=== PATIENT | female | born 2000 | race African-American/Black ===

== ENCOUNTER 2025-03-24 23:42 | Emergency (ER) | payer SELFPAY ==
--- NOTE | ~2025-03-24 | US_ITS ---
Pelvic ultrasound. Clinical History: First trimester , evaluate for ectopic . Technique: Realtime transabdominal and transvaginal scanning of the pelvis was performed. Color flow Doppler and Doppler spectral analysis were performed. Findings: The uterus is anteverted, and contains an intrauterine gestational sac. Average sac diamete r of 1.7 cm corresponds to an estimated gestational age of 6 weeks 3 days. [place]-rump length of 5 mm corresponds to an estimated gestational age of 6 weeks 1 day. heart rate is 123 bpm.. The right ovary measures 2.1 x 2.9 x 3.5 cm. Corpus luteal cyst is seen. The left ovary measures 2.9 x 1.6 x 1.7 cm. No significant left ovarian or adnexal mass is seen. There is no evidence of free fluid in the cul de sac. Impression: Live intrauterine gestation, with estimated gestational age of 6 weeks 1 day. heart rate is 123 bpm. Reviewed, dictated and finalized at location . Impression: Live intrauterine gestation, with estimated gestational age of 6 weeks 1 day. F etal heart rate is 123 bpm.
[2025-03-24 23:45] VITALS: BP 122/57; PULSE 93; RESP 18; TEMP 36.9; O2SAT 98
--- NOTE | 2025-03-24 23:49 | ECG_ITS ---
Test Date: 2025-03-24 23:59:34 Measurements Intervals [place] Rate: 72 P: 34 CO: 132 QRS: 70 QRSD: 72 T: 33 QT: 370 QTc: 406 Interpretive Statements SINUS RHYTHM WITH OCCASIONAL SUPRAVENTRICULAR PREMATURE COMPLEXES No previous ECG available for comparison Electronically Signed On 03-25-2025 14:03:21 CDT by Ama Mac M.D.
--- NOTE | 2025-03-25 00:38 | PC.NURSE ---
Pt reports LMP was 02/06. pt had x1 day of spotting this month on 03/08. reports she belives there is a chance she may be . bedside positive.
[2025-03-25 00:48] LABS: Add Urine Microscopic? YES; Appearance Urine Cloudy (Clear); Bacteria Urine None Seen /hpf; Bilirubin Urine Negative (Negative); Blood Urine Negative (Negative); Color Urine Yellow (Yellow); Glucose Urine UA Negative (Negative); Ketones Urine Negative (Negative); Leukocyte Esterase Ur Trace LEU/UL (Negative); Nitrate Urine Negative (Negative); Non Pathogenic Casts 0-2; Protein Urine Negative (Negative); RBC Urine 0-2 /hpf (0-2); Specific Grav Ur 1.017 (1.001-1.035); Squamous Epithelial Cell Urine None Seen /hpf (Few); WBC Urine 0-5 /hpf (0-3)
--- NOTE | 2025-03-25 00:55 | ED_ITS ---
HPI - Abdominal Pain General Chief Complaint: Abdominal Pain Stated Complaint: abd pain, dizziness Time Seen by Provider: 03/25/25 00:09 Source: patient Mode of arrival: ambulatory Limitations: no limitations History of Present Illness HPI narrative: Patient presents with generalized abdominal pain, upper (RUQ) and lower (RLQ and LLQ) as well as low back pain. She has been dizzy. Desribes it as a pressure. No prior abdominal surgeries. Reports LMP 02/06/25; she did have some llight spotting 03/07-03/08. Has been nauseated and vomiting. Was seeing stars when standing. History of anemia. Last had sex approximately > 1 month ago. History of one previous preganncy, voluntary termination. No ObGyn. JESSICA was a few hours ago. Has an appetite. Subjective fevers but no chills. Emesis was non bloody non bilious. No sick contacts. Denies vaginal bleeding other than light bleeding as above. Has had some yellow/green discharge. Urinary urgency but no dysuria, frequency or hematuria. Right flank pain. LBM today was loose but formed, no constipation or blood. Related Data Allergies Allergy/AdvReac Type Severity Reaction Status Date / Time No Known Allergies Allergy Verified 03/25/25 04:16 [facility] Past Medical History Medical History Anemia Social History Social History (Updated 03/27/25 @ 05:58 by Rosamaria Crowder MD) Occupation/Education: occupation Exam 2 Narrative: GENERAL: Well-appearing, well-nourished, and in no acute distress. HEAD: Normocephalic, atraumatic. EYES: Non injected, non icteric ENT: Nares clear, no rhinorrhea or epistaxis. Gross auditory acuity intact. Tacky mucous membranes NECK: Supple. No meningismus. CHEST: Speaking in full sentences. No respiratory distress. HEART: Regular rate and rhythm. . ABDOMEN: Soft, nondistended. No rigidity or guarding. Not peritoneal. No tenderness to palpation throughout. BACK/: No CVA tenderness. Attempted pelvic/speculum exam with tech as sheet metal lay out worker/collections assistant but patient does not tolerate it well, do not have smaller size speculum in the department. No obvious external lesions/bleeding. NOrmal external genitalia. EXTREMITIES: Normal range of motion. No lower extremity edema. SKIN: Warm, dry, no rash. NEURO: No focal deficits. Alert and oriented. Answering questions. Following commands. Normal speech without aphasia or dysarthria. PSYCH: Normal mood and affect. Course Vital Signs Vital signs: Vital Signs Temperature 98.5 F 03/24/25 23:45 Pulse Rate 93 03/24/25 23:45 Respiratory Rate 18 03/24/25 23:45 Blood Pressure 122/57 L 03/24/25 23:45 Pulse Oximetry 98 03/24/25 23:45 Temperature 98.5 F 03/25/25 07:50 Pulse Rate 79 03/25/25 07:50 Respiratory Rate 16 03/25/25 07:50 Blood Pressure 109/74 03/25/25 07:50 Pulse Oximetry 100 03/25/25 07:50 MDM - Abdominal Pain MDM Narrative Medical decision making narrative: Patient presents with abdominla pain dizziness nausea and vomiting. The emergency department she is afebrile with acceptable vital signs. Urine test positive. This makes her . She did not know she was , there has been no confirmation of IUP. Normocytic anemia with no prior for comparison. Patient's beta-hCG is greater than 44,000. Ultrasound ordered emergently for ectopic rule out. Patient is updated at bedside at approximately 2:30 a.m.. She verifies understanding. She states she has not had any symptoms of morning sickness but she has had some abdominal cramping. Attempted to perform pelvic exam/speculum exam with sheet metal lay out worker Valarie present but patient's vaginal introitus small for speculum size available in ED. Deferred. A positive blood type. IUP on US. Discussed with patient. Discharged in stable condition with normal vital signs , OBGYn follow up, Rx for APAP and vitamins, and was given strict ED return precautions. Differential Diagnosis Differential diagnosis: Likely abdominal pain, calculus of kidney, constipation, endometriosis, pancreatitis and other (spectrum of new diagnosis (normal, miscarriage, ectopic)) Lab Data Attestation: I reviewed the patient's lab results. Lab results narrative: Normal renal function 03/25/25 00:24 03/25/25 00:24 Labs: Lab Results 03/25/25 03/25/25 03/25/25 Range/Units 00:24 00:38 02:25 WBC 6.1 (4.5-10.0) K/mm3 RBC 3.70 L (4.2-5.4) M/mm3 Hgb 10.7 L (12.0-15.0) g/dL Hct 33.0 L (37.0-47.0) % MCV 89.2 (80-100) fl MCH 28.9 (26-34) pg MCHC 32.4 (32-36) g/dl RDW 16.7 H (11.5-14.5) % Plt Count 243 (150-375) k/mm3 MPV 12.3 H (7.4-10.4) fl Immature Gran % (Auto) 1.0 H (0-0.5) % Neut % (Auto) 51.5 (45.5-73.1) % Lymph % (Auto) 33.6 (18.3-44.2) % [place] % (Auto) 11.0 H (2.6-8.5) % Eos % (Auto) 2.6 (0-4.4) % Baso % (Auto) 0.3 (0.2-1.2) % Lymph # (Auto) 2.05 (0.9-3.2) K/mm3 [place] # (Auto) 0.7 H (0.1-0.6) K/mm3 Eos # (Auto) 0.2 (0-0.3) K/mm3 Baso # (Auto) 0.0 (0.0-0.1) K/mm3 Abs Immat Gran (auto) 0.06 H (0.00-0.031) K/mm3 Absolute Neuts (auto) 3.1 (1.3-6.7) K/mm3 Absolute Nucleated RBC 0.000 (0.0-0.012) K/mm3 Nucleated RBC % 0.0 (0.0-0.2) % PT 14.4 (11.1-14.7) Seconds INR 1.1 APTT 27.3 (22.3-36.8) Seconds Sodium 137 (137-145) mmol/L Potassium 3.7 (3.4-5.0) mmol/L Chloride 103 (98-107) mmol/L Carbon Dioxide 23 (22-30) mmol/L Anion Gap 11 (4-12) mmol/L BUN 9 (7-17) mg/dL Creatinine 0.55 L (0.7-1.0) mg/dL Estim Creat Clear Calc 111 ml/min Estimated GFR > 60 (59 - ) Glucose 89 (65-110) mg/dL Calcium 9.7 (8.4-10.2) mg/dL Total Bilirubin 0.4 (0.2-1.3) mg/dL AST 25 (14-36) U/L ALT 14 (6-35) U/L Alkaline Phosphatase 32 L (38-126) U/L Total Protein 7.0 (6.3-8.2) g/dL Albumin 4.5 (3.5-5.1) g/dL Lipase 146 (23-300) U/L Beta HCG, Quant 05051.00 mIU/ML Urine Color Yellow (Yellow) Urine Appearance Cloudy H (Clear) Urine pH 7.0 (5.0-9.0) Ur Specific [place] 1.017 (1.001-1.035) Urine Protein Negative (Negative) mg/dL Urine Glucose (UA) Negative (Negative) mg/dL Urine Ketones Negative (Negative) mg/dL Ur Blood (Man) Negative (Negative) Urine Nitrate Negative (Negative) Urine Bilirubin Negative (Negative) Urine Urobilinogen 1.0 (<2.0) mg/dL Leukocyte Esterase Rfl Trace H (Negative) DANY/UL Urine RBC 0-2 (0-2) /hpf Urine WBC 0-5 (0-3) /hpf Ur Squamous Epith Cells None seen (Few) /hpf Urine Bacteria None seen /hpf Urine Casts 0-2 POC Urine HCG, Qual Positive (Negative) C. trachomatis (PCR) Not detected (NOT DETECTE) Influenza A (RT-PCR) Negative (Negative) Influenza B (RT-PCR) Negative (Negative) N. gonorrhoeae (PCR) Not detected (NOT DETECTE) SARS-CoV-2 RNA (RT-PCR) Negative (Negative) T. vaginalis (PCR) Not detected (NOT DETECTE) Blood Type A Positive Antibody Screen Negative Screen TNP Baby's Blood Type Not Reportable Baby's DOMINIQUE Not Reportable Doses of RhIg Required 0 Imaging Data Radiologist's impression: ITS Impressions Ultrasound 03/25/25 06:39 Impression: Live intrauterine gestation, with estimated gestational age of 6 weeks 1 day. heart rate is 123 bpm. ECG Data EKG #1: Attestation: I personally reviewed and interpreted this ECG as follows: ECG completion date: 03/24/25 ECG completion time: 23:59 Interpretation: Normal sinus rhythm at a rate of 72 beats per minute. [place] interval 132. QRS 72. QT/QTC 370/394. Good R-wave progression across the precordial leads. T-wave flattening in 3 but otherwise upright in normal contiguous inferior leads 2 and AVF. No other T-wave inversions. There is occasional supraventricular complex per Discharge Plan Discharge Clinical Impression: Normocytic anemia, Abdominal pain in early Patient Disposition: Home Condition: Stable Instructions: Antibiotic Form, Abdominal Pain in (ED), Anemia (ED) Additional Instructions: As we discussed, you are . Live intrauterine gestation, with estimated gestational age of 6 weeks 1 day. heart rate is 123 bpm. Acetaminophen/Tylenol is safe to take during . vitamins have also been prescribed. Follow-up with the OB Gyne listed below. Return to the emergency department with any new, worsening, or unmanaged symptoms. In particular, if you become short of breath, faint/nearly pass out, have a fever greater than 100.4? F, flank pain, intractable nausea or vomiting, intractable pain, or vaginal bleeding saturating 2 maxi pads an hour for 2-3 hours. Patient Language: Georgian Prescriptions: New acetaminophen 650 mg tablet extended release 650 mg PO Q8H PRN (Reason: pain) Qty: 30 0RF 400 mcg tablet,chewable 2 tablet PO DAILY 30 Days Qty: 60 0RF Follow-up/Referrals: Chloe Castillo MD [Physician] - UNKNOWN,DOCTOR [Non-Staff] - Stand Alone Forms: Work/School Release IP Time of Disposition: 07:34
[2025-03-25 00:57] LABS: BEDSIDEPREGUCG Positive (Negative)
[2025-03-25 01:02] LABS: Alanine Aminotransferase 14 U/L (6-35); Albumin Level 4.5 g/dL (3.5-5.1); Alkaline Phosphatase 32 U/L (38-126); Anion Gap 11 mmol/L (4-12); Aspartate Amino Transferase 25 U/L (14-36); Bilirubin,Total 0.4 mg/dL (0.2-1.3); Blood Urea Nitrogen 9 mg/dL (7-17); Calcium 9.7 mg/dL (8.4-10.2); Carbon Dioxide 23 mmol/L (22-30); Chloride 103 mmol/L (98-107); Estimated CRCL calculation 111 ml/min; Estimated Glomerular Filt Rate > 60; Glucose 89 mg/dL (65-110); Lipase 146 U/L (23-300); Potassium 3.7 mmol/L (3.4-5.0); Sodium 137 mmol/L (137-145)
[2025-03-25 01:06] LABS: Basophils Percent Auto 0.3 % (0.2-1.2); Eosinophils Absolute Auto 0.2 K/mm3 (0-0.3); Eosinophils Percent Auto 2.6 % (0-4.4); Hemoglobin 10.7 g/dL (12.0-15.0); Immature Granulocyte Absolute 0.06 K/mm3 (0.00-0.031); Lymphocytes Absolute Auto 2.05 K/mm3 (0.9-3.2); Lymphocytes Percent Auto 33.6 % (18.3-44.2); Mean Corpuscular HGB Conc 32.4 g/dl (32-36); Mean Corpuscular Hemoglobin 28.9 pg (26-34); Mean Corpuscular Volume 89.2 fl (80-100); Mean Platelet Volume 12.3 fl (7.4-10.4); Monocytes Absolute Auto 0.7 K/mm3 (0.1-0.6); Neutrophils Absolute Auto 3.1 K/mm3 (1.3-6.7); Neutrophils Percent Auto 51.5 % (45.5-73.1); Platelet Count Result 243 k/mm3 (150-375); Red Cell Distribution Width 16.7 % (11.5-14.5); White Blood Count 6.1 K/mm3 (4.5-10.0)
[2025-03-25 01:37] LABS: INR 1.1; Prothrombin Time 14.4 Seconds (11.1-14.7)
[2025-03-25 01:38] LABS: Partial Thromboplastin Time 27.3 Seconds (22.3-36.8)
--- OUTSIDE RECORDS SUMMARY | 2025-03-25 01:42 | XMS_ITS | Referral Summary ---
Author Organization [place] [id number] Address [address] [place] [address] Care Team Providers Care Fur Tanner Name Role Phone Sahil Lopez MD Unavailable [phone] No, Physician Primary Care Provider [phone] Allergies No known active allergies Social History Tobacco Use Types Packs/Day Years Used Date Smoking Tobacco: Never Smokeless Tobacco: Never Personal Safety Answer Date Recorded Getting School Help Needed Not on file 01/13 Comments No Sex and Gender Information Value Date Recorded Sex Assigned at Not on file Legal Sex Female 9:57 AM CDT Gender Identity Not on file Sexual Orientation Not on file Last Filed Vital Signs Vital Sign Reading Time Taken Comments Blood Pressure 128/73 03/07/2022 6:56 PM CDT Pulse 93 03/07/2022 6:56 PM CDT Temperature 36.5 C (97.7 F) 03/07/2022 6:56 PM CDT Respiratory Rate 18 03/07/2022 6:56 PM CDT Oxygen Saturation 97% 03/07/2022 6:56 PM CDT Inhaled Oxygen Concentration - - Weight 53.3 kg (117 lb 8.1 oz) 03/07/2022 6:56 P M CDT Height 160 cm (5' 3) 03/07/2022 6:56 PM CDT Body Mass Index 20.82 03/07/2022 6:56 PM CDT Plan of Treatment Not on file Insurance [facility] Care Teams Fur Tanner Relationship Specialty Start Date End Date No, Physician PCP - General 03/07/22 Sahil Lopez MD [address] [facility] [address] [place] [address] Family Medicine 01/16/19
--- OUTSIDE RECORDS SUMMARY | 2025-03-25 01:42 | XMS_ITS | Clinical Summary ---
Author Organization [address] Address [facility]ly [facility] [place] [address] Care Team Providers Care Short Order Cook Name Role Phone Sahil Lopez MD Unavailable [phone], Physician Primary Care Provider [phone] Allergies No known active allergies Social History [...] on file Sexual Orientation Not on file Obstetrics History Last Filed Vital Signs Vital Sign Reading [...] Plan of Treatment Not on file Insurance [employer] [facility] Care Teams Short Order Cook Relationship Specialty Start Date End Date No, Physician PCP - General 03/07/22 Sahil Lopez MD [address] [facility] [address] [place] [address] Family Medicine 01/16/19
[2025-03-25] MEDS: ACETAMINOPHEN 325 MG TABLET 650 MG PO (02:01)
[2025-03-25] MEDS: ONDANSETRON INJ 4 MG/2 ML VIAL IV PUSH (02:01)
[2025-03-25] MEDS: SODIUM CHLORIDE 0.9% IV 1,000 ML 999 ML IV CONT (02:01)
[2025-03-25 02:05] VITALS: BP 119/61; PULSE 70; RESP 18; O2SAT 100
[2025-03-25 03:07] LABS: Influenza A QL RT-PCR Negative (Negative); Influenza B QL RT-PCR Negative (Negative); SARS-CoV-2 RNA PCR Negative (Negative)
[2025-03-25 04:37] LABS: Trichomonas Vag PCR NOT DETECTED (NOT DETECTE)
[2025-03-25 05:00] LABS: Chlamydia trachomatis NOT DETECTED (NOT DETECTE); Neisseria gonorrhoeae PCR NOT DETECTED (NOT DETECTE)
[2025-03-25 06:30] VITALS: BP 120/66; PULSE 89; RESP 22; O2SAT 99
[2025-03-25 06:35] VITALS: BP 115/68; PULSE 74; RESP 16; O2SAT 100
[2025-03-25 07:50] VITALS: BP 109/74; PULSE 79; RESP 16; TEMP 36.9; O2SAT 100
== END 2025-03-25 08:05 | disposition home or self-care (01) ==
PROVIDERS: Emergency Provider Student in an Organized Health Care Education/Training Program
DX: O26.891 Other specified pregnancy related conditions, first trimester (principal); R10.11 Right upper quadrant pain; R10.32 Left lower quadrant pain; R10.31 Right lower quadrant pain; O99.011 Anemia complicating pregnancy, first trimester; D64.9 Anemia, unspecified; O99.411 Diseases of the circulatory system complicating pregnancy, first trimester; I49.1 Atrial premature depolarization; Z3A.01 Less than 8 weeks gestation of pregnancy
CPT/HCPCS: 36415; 76801; 80053; 81001; 81025; 83690; 84702; 85025; 85461; 85610; 85730; 86850; 86900; 86901; 87491; 87591; 87636; 87661; 93005; 96361; 96374; 99284; A9270; J2405; J7030